=== PATIENT | female | born 1960 | race Two or more races ===

== ENCOUNTER 2019-12-26 17:19 | Emergency (ER) | payer MEDICAID, OTHER ==
--- NOTE | 2019-12-26 17:30 | EDM.PDOC ---
ED HPI GENERAL MEDICAL PROBLEM - General Chief Complaint: Genitourinary Problem Stated Complaint: SICK Time Seen by Provider: 12/26/19 17:20 Source of Information: Reports: Patient History Limitations: Reports: No Limitations - History of Present Illness INITIAL COMMENTS - FREE TEXT/NARRATIVE: HISTORY AND PHYSICAL: History of present illness: Patient is a 59-year-old female who presents to the emergency room with complaints of left lower abdominal/groin pain. She states this afternoon she noticed the pain but felt that it was related to needing to have a bowel movement. She states she did get some relief after voiding and having a bowel movement, describes this as normal. She took some Pepto-Bismol and Tylenol and now feels improved. She states her pain is a 1-2 out of 10. She wanted to come in for evaluation as she states thinks she has a history of ovarian cysts. Patient denies any fever, chills, headache, change in vision, syncope or near syncope. Denies any chest pain, back pain, shortness of breath or cough. Denies any nausea, vomiting, diarrhea, constipation or dysuria. Has not noted any blood in urine or stool. Denies any chance of , concerns of STDs. Denies any vaginal bleeding or discharge. She has been eating and drinking appropriately. Review of systems: As per history of present illness and below otherwise all systems reviewed and negative. Past medical history: As per history of present illness and as reviewed below otherwise noncontributory. Surgical history: As per history of present illness and as reviewed below otherwise noncontributory. Social history: See social history for further information Family history: As per history of present illness and as reviewed below otherwise noncontributory. Physical exam: General: Well-developed and well-nourished 59-year-old female. Alert and oriented. Nontoxic-appearing and in no acute distress. HEENT: Atraumatic, normocephalic, pupils equal and reactive bilaterally, negative for conjunctival pallor or scleral icterus, mucous membranes moist, TMs normal bilaterally, throat clear, neck supple, nontender, trachea midline. No drooling or trismus noted. No meningeal signs. No hot potato voice noted. Lungs: Clear to auscultation, breath sounds equal bilaterally, chest nontender. Heart: S1S2, regular rate and rhythm without overt murmur Abdomen: Soft, nondistended, nontender. Negative for masses. Negative for costovertebral tenderness. Pelvis: Stable nontender. Skin: Intact, warm, dry. No lesions or rashes noted. Extremities: Atraumatic, moves all extremities per self without difficulty or deficits, negative for cords or calf pain. Neurovascular unremarkable. Neuro: Awake, alert, oriented. Cranial nerves II through XII unremarkable. Cerebellum unremarkable. Motor and sensory unremarkable throughout. Exam nonfocal. Notes: Patient has a slight leukocytosis; we discussed risk vs benefits of imaging and she would like a CT at this time. CT shows right-sided pelvic mass either due to ovarian mass or fibroid. This findings was shared with the patient. She states she has had a known fibroid that she has seen someone at [facility] for , I did encourage her to have this reevaluated. We discussed signs and symptoms that would prompt her to return to the ED. States her pain has "pretty much resolved". VSS. Supportive care measures were reviewed and discussed. Voices understanding and is agreeable to plan of care. Denies any further questions or concerns at this time. Diagnostics: CBC, CMP, UA, CT abd/pelvis Therapeutics: None Prescription: None Impression: Abdominal Pain, LLQ Plan: 1. Sabine diet over the next 24-72 hours; advance as tolerated. Increase fluids. 2. Tylenol and/or Ibuprofen as needed for pain. 3. Follow up with OBGYN regarding the right-sided pelvic mass/fibroid. 4. Follow up with your primary care provider as we discussed. Return to the ED as needed as discussed. Definitive disposition and diagnosis as appropriate pending reevaluation and review of above. left groin Pain Score (Numeric/FACES): 2 - Related Data Allergies Allergy/AdvReac Type Severity Reaction Status Date / Time lisinopril Allergy Cough Verified 12/26/19 17:39 Home Meds: Home Meds Furosemide [Lasix] 1 tab PO DAILY 12/26/19 [History] Hydrochlorothiazide 25 mg PO DAILY 12/26/19 [History] Insulin Glarg,Human.Rec.Analog [Lantus] 47 units INJECT ACBREAKFAST 12/26/19 [ History] Insulin Lispro [HumaLOG] 1 dose INJECT ASDIRECTED 12/26/19 [History] Losartan [Cozaar] 100 mg PO DAILY 12/26/19 [History] Metoprolol Succinate [Kapspargo Sprinkle] 1 tab PO DAILY 12/26/19 [History] Oxybutynin [Oxytrol For Women] 1 tab PO BID 12/26/19 [History] atorvaSTATin [Lipitor] 40 mg PO DAILY 12/26/19 [History] metFORMIN [Glucophage XR] 2,000 mg PO BID 12/26/19 [History] ED ROS GENERAL - Review of Systems Review Of Systems: Comprehensive ROS is negative, except as noted in HPI. ED EXAM, RENAL/ - Physical Exam Exam: See Below (See dictation) Course - Vital Signs Last Recorded V/S: Last Vital Signs Temp 96.7 F L 12/26/19 17:42 Pulse 90 12/26/19 17:42 Resp 18 12/26/19 17:42 BP 147/72 H 12/26/19 17:42 Pulse Ox 97 12/26/19 17:42 - Orders/Labs/Meds Labs: Laboratory Tests 12/26/19 12/26/19 12/26/19 Range/Units 17:46 17:47 17:47 WBC 12.48 H (4.0-11.0) K/uL RBC 3.72 L (4.30-5.90) M/uL Hgb 11.1 L (12.0-16.0) g/dL Hct 34.4 L (36.0-46.0) % MCV 92.5 (80.0-98.0) fL MCH 29.8 (27.0-32.0) pg MCHC 32.3 (31.0-37.0) g/dL RDW Std Deviation 58.9 (28.0-62.0) fl RDW Coeff of [place] 17 H (11.0-15.0) % Plt Count 323 (150-400) K/uL MPV 12.10 H (7.40-12.00) fL Neut % (Auto) 68.1 (48.0-80.0) % Lymph % (Auto) 24.0 (16.0-40.0) % [place] % (Auto) 6.0 (0.0-15.0) % Eos % (Auto) 1.7 (0.0-7.0) % Baso % (Auto) 0.2 (0.0-1.5) % Neut # (Auto) 8.5 H (1.4-5.7) K/uL Lymph # (Auto) 3.0 H (0.6-2.4) K/uL [place] # (Auto) 0.8 (0.0-0.8) K/uL Eos # (Auto) 0.2 (0.0-0.7) K/uL Baso # (Auto) 0.0 (0.0-0.1) K/uL Nucleated RBC % 0.0 /100WBC Nucleated RBCs # 0 K/uL Sodium 139 (136-145) mmol/L Potassium 4.6 (3.5-5.1) mmol/L Chloride 101 (98-107) mmol/L Carbon Dioxide 31.8 (21.0-32.0) mmol/L BUN 20 H (7.0-18.0) mg/dL Creatinine 1.1 H (0.6-1.0) mg/dL Est Cr Clr Drug Dosing 50.77 mL/min Estimated GFR (MDRD) 51.2 ml/min Glucose 211 H (74-106) mg/dL Calcium 8.8 (8.5-10.1) mg/dL Total Bilirubin 0.2 (0.2-1.0) mg/dL AST 14 L (15-37) IU/L ALT 21 (14-63) IU/L Alkaline Phosphatase 109 (46-116) U/L Total Protein 7.2 (6.4-8.2) g/dL Albumin 3.1 L (3.4-5.0) g/dL Globulin 4.1 H (2.6-4.0) g/dL Albumin/Globulin Ratio 0.8 L (0.9-1.6) Urine Color YELLOW Urine Appearance CLEAR Urine pH 7.0 (5.0-8.0) Ur Specific [place] 1.020 (1.001-1.035) Urine Protein NEGATIVE (NEGATIVE) mg/dL Urine Glucose (UA) NEGATIVE (NEGATIVE) mg/dL Urine Ketones NEGATIVE (NEGATIVE) mg/dL Urine Occult Blood NEGATIVE (NEGATIVE) Urine Nitrite NEGATIVE (NEGATIVE) Urine Bilirubin NEGATIVE (NEGATIVE) Urine Urobilinogen 0.2 (<2.0) EU/dL Ur Leukocyte Esterase NEGATIVE (NEGATIVE) Departure - Departure Time of Disposition: 19:21 Disposition: Home, Self-Care 01 Clinical Impression: Abdominal pain Qualifiers: Abdominal location: left lower quadrant Qualified Code(s): R10.32 - Left lower quadrant pain - Discharge Information Instructions: Abdominal Pain, Adult, [id number] Referrals: Skylar Nelson NP [Primary Care Provider] - Forms: ED Department Discharge Additional Instructions: The following information is given to patients seen in the emergency department who are being discharged to home. This information is to outline your options for follow-up care. We provide all patients seen in our emergency department with a follow-up referral. The need for follow-up, as well as the timing and circumstances, are variable depending upon the specifics of your emergency department visit. If you don't have a primary care physician on staff, we will provide you with a referral. We always advise you to contact your personal physician following an emergency department visit to inform them of the circumstance of the visit and for follow-up with them and/or the need for any referrals to a consulting specialist. The emergency department will also refer you to a specialist when appropriate. This referral assures that you have the opportunity for follow-up care with a specialist. All of these measure are taken in an effort to provide you with optimal care, which includes your follow-up. Under all circumstances we always encourage you to contact your private physician who remains a resource for coordinating your care. When calling for follow-up care, please make the office aware that this follow-up is from your recent emergency room visit. If for any reason you are refused follow-up, please contact the [facility] Emergency Department at and asked to speak to the emergency department charge nurse. [facility] [address] [place] [id number] [address] 1. Sabine diet over the next 24-72 hours; advance as tolerated. Increase fluids. 2. Tylenol and/or Ibuprofen as needed for pain. 3. Follow up with OBGYN regarding the right-sided pelvic mass/fibroid. 4. Follow up with your primary care provider as we discussed. Return to the ED as needed as discussed. Sepsis Event Note - Focused Exam Vital Signs: Vital Signs Temp Pulse Resp BP Pulse Ox 12/26/19 17:42 96.7 F L 90 18 147/72 H 97 Date Exam was Performed: 12/26/19 Time Exam was Performed: 19:22
[2019-12-26 18:13] LABS: CARBON DIOXIDE,CO2 31.8 mmol/L (21.0-32.0); POTASSIUM,K 4.6 mmol/L (3.5-5.1)
--- NOTE | 2019-12-26 19:16 | CT ---
CT abdomen and pelvis Technique: Multiple axial sections were obtained from above the dome of the diaphragm inferiorly through the pubic symphysis. Intravenous and oral contrast not utilized. Comparison: No prior abdominal imaging. Findings: Visualized lung bases show nothing acute. Noncontrast appearance of the liver shows no focal abnormality. Surgical clips are noted from prior cholecystectomy. No spleen is seen. Adrenal glands show no nodule. Numerous surgical clips are seen within the upper abdomen. Kidneys show no abnormal calcifications. Anteriorly pointing left renal pelvis is seen which is felt to be a normal variant. No ureteral dilatation or ureteral stone is appreciated. Pancreas not visualized. Aorta shows atherosclerotic calcification without aneurysm. No retroperitoneal adenopathy or mesenteric abnormalities are seen. Right-sided pelvic mass is noted. This finding measures approximately 7.5 cm in size. Uncertain if this represents an enlarged ovary or represents a pedunculated uterine fibroid. No additional pelvic abnormality is appreciated. No free fluid or inflammatory change is appreciated. Slight increased stool seen throughout the colon. Bone window settings were reviewed which shows vacuum phenomena within the L4 3 4 and L4-5 discs. Disc space narrowing noted at L5-S1. No acute osseous finding is seen. Small fat-containing umbilical hernia is noted. Impression: 1. Pancreas not well seen. No spleen is appreciated. Surgical clips are seen of the upper abdomen. 2. Right-sided pelvic mass either due to ovarian mass or pedunculated fibroid. Pelvic ultrasound is recommended to further evaluate. 3. Mild increased stool throughout the colon. 4. Other findings believed to be nonacute and incidental as described above. Diagnostic code #9 This report was dictated in MDT
== END 2019-12-26 19:30 | disposition home or self-care (01) ==
LOC: MW.ED 17:19
DX: R10.32 Left lower quadrant pain (principal); D72.829 Elevated white blood cell count, unspecified; Z88.8 Allergy status to other drugs, medicaments and biological substances
CPT/HCPCS: 36415; 74176; 74176-26; 80053; 81003; 85025; 99284-25

== ENCOUNTER 2020-03-24 19:21 | Emergency (ER) | payer MEDICAID ==
[2020-03-24] MEDS ORDERED: Octyl 2-Cyanoacrylate 1 Tube TOP ONE (21:37)
--- NOTE | 2020-03-24 21:40 | EDM.PDOC ---
ED HPI GENERAL MEDICAL PROBLEM - General Chief Complaint: Wound Recheck Stated Complaint: LACERATION LEFT LEG Time Seen by Provider: 03/24/20 21:09 - History of Present Illness INITIAL COMMENTS - FREE TEXT/NARRATIVE: History of present illness: 59-year-old female presenting with left johnston laceration sustained just prior to arrival as the patient was building a metal bed and the metal piece cut her leg. She was concerned because the bleeding continued as she is on Plavix. The bleeding is now stopped on arrival here. Tetanus was less than 3 years ago. No other injury or pain. She did not fall. Review of systems: As per history of present illness and below otherwise all systems reviewed and negative. Past medical history: As per history of present illness and as reviewed below otherwise noncontributory. Surgical history: As per history of present illness and as reviewed below otherwise noncontributory. Social history: No reported history of drug or alcohol abuse. Family history: As per history of present illness and as reviewed below otherwise noncontributory. Physical exam: GEN: no acute distress, well appearing HEENT: Atraumatic, normocephalic, mucous membranes moist, Neck: supple, nontender, trachea midline. Lungs: No respiratory distress. Heart: RRR Abdomen: Soft, nondistended, nontender. Back: nontender Extremities: 2 cm laceration distal left johnston, no active bleeding. Neurovascularly intact. Neuro: Awake, alert, oriented. Neuro Exam nonfocal. Skin: warm, dry, no lesions 2 cm laceration as above, superficial Diagnostics: [] Therapeutics: [] MDM: Plan: Steri-Strips and Dermabond to the wound. Tetanus is up-to-date. Impression: [] Plan: [] Definitive disposition and diagnosis as appropriate pending reevaluation and review of above. left leg Pain Score (Numeric/FACES): 1 - Related Data Allergies Allergy/AdvReac Type Severity Reaction Status Date / Time lisinopril Allergy Cough Verified 03/24/20 21:04 Home Meds: Home Meds Furosemide [Lasix] 1 tab PO DAILY 12/26/19 [History] Insulin Glarg,Human.Rec.Analog [Lantus] 47 units INJECT ACBREAKFAST 12/26/19 [History] Insulin Lispro [HumaLOG] 1 dose INJECT ASDIRECTED 12/26/19 [History] Losartan [Cozaar] 100 mg PO DAILY 12/26/19 [History] Metoprolol Succinate [Kapspargo Sprinkle] 1 tab PO DAILY 12/26/19 [History] Oxybutynin [Oxytrol For Women] 1 tab PO BID 12/26/19 [History] atorvaSTATin [Lipitor] 40 mg PO DAILY 12/26/19 [History] hydroCHLOROthiazide [Hydrochlorothiazide] 25 mg PO DAILY 12/26/19 [History] metFORMIN [Glucophage XR] 2,000 mg PO BID 12/26/19 [History] Clopidogrel [Plavix] 75 mg PO DAILY 03/24/20 [History] Past Medical History HEENT History: Reports: Cataract Cardiovascular History: Reports: High Cholesterol, Hypertension Respiratory History: Reports: Bronchitis, Recurrent, COPD Gastrointestinal History: Reports: Pancreatitis Genitourinary History: Reports: None HOME HEALTH SPEECH THERAPIST History: Reports: None Musculoskeletal History: Reports: Arthritis Neurological History: Reports: None Psychiatric History: Reports: Anxiety, Depression Endocrine/Metabolic History: Reports: Diabetes Mellitus, Type 3c Hematologic History: Reports: None Immunologic History: Reports: None Oncologic (Cancer) History: Reports: None Dermatologic History: Reports: None - Infectious Disease History Infectious Disease History: Reports: Chicken Pox, Measles, Mumps - Past Surgical History Head Surgeries/Procedures: Reports: None HEENT Surgical History: Reports: None Cardiovascular Surgical History: Reports: Coronary Artery Stent Respiratory Surgical History: Reports: None GI Surgical History: Reports: Abdominal paracentesis Female Surgical History: Reports: None Endocrine Surgical History: Reports: None Neurological Surgical History: Reports: None Musculoskeletal Surgical History: Reports: Knee Replacement Oncologic Surgical History: Reports: None Dermatological Surgical History: Reports: None Social & Family History - Family History Family Medical History: Noncontributory - Tobacco Use Smoking Status *Q: Never Smoker - Caffeine Use Caffeine Use: Reports: None ED ROS GENERAL - Review of Systems Review Of Systems: See Below (See HPI) ED EXAM, GENERAL - Physical Exam Exam: See Below (See HPI) Course - Vital Signs Text/Narrative:: Laceration from a piece of a bed, tetanus up-to-date, Steri-Strips and Dermabond placed by nursing. Patient left prior to final discharge discussion and disposition by myself. Last Recorded V/S: Last Vital Signs Temp 96.9 F 03/24/20 21:02 Pulse 84 03/24/20 21:02 Resp 16 03/24/20 21:02 BP 140/69 03/24/20 21:02 Pulse Ox 97 03/24/20 21:02 - Orders/Labs/Meds Meds: Medications Discontinued Medications Generic Name Dose Route Start Last Admin Trade Name Dalia PRN Reason Stop Dose Admin Octyl Cyanoacrylate 1 applic 03/24/20 21:37 03/24/20 21:51 Dermabond Advance TOP 03/24/20 21:38 1 applic ONETIME ONE Administration - Re-Assessments/Exams Free Text/Narrative Re-Assessment/Exam: 03/24/20 22:37 I went to to check back in on the patient to give her final discharge instructions after nursing had placed Steri-Strips and Dermabond. However the patient is not present in the room. Apparently the patient left without final discharge instructions after repair of her wound. Departure - Departure Time of Disposition: 22:38 Disposition: Eloped 07 Clinical Impression: Skin laceration - Discharge Information Instructions: Sutures, Dresher, or Adhesive Wound Closure, [id number] Referrals: Skylar Nelson NETWORK TECHNICAL ANALYST [Primary Care Provider] - Forms: ED Department Discharge Additional Instructions: The following information is given to patients seen in the emergency department who are being discharged to home. This information is to outline your options for follow-up care. We provide all patients seen in our emergency department with a follow-up referral. The need for follow-up, as well as the timing and circumstances, are variable de pending upon the specifics of your emergency department visit. If you don't have a primary care physician on staff, we will provide you with a referral. We always advise you to contact your personal physician following an emergency department visit to inform them of the circumstance of the visit and for follow-up with them and/or the need for any referrals to a consulting specialist. The emergency department will also refer you to a specialist when appropriate. This referral assures that you have the opportunity for follow-up care with a specialist. All of these measure are taken in an effort to provide you with optimal care, which includes your follow-up. Under all circumstances we always encourage you to contact your private physician who remains a resource for coordinating your care. When calling for follow-up care, please make the office aware that this follow-up is from your recent emergency room visit. If for any reason you are refused follow-up, please contact the [facility] Emergency Department at and asked to speak to the emergency department charge nurse. Sepsis Event Note (ED) - Evaluation Sepsis Screening Result: No Definite Risk - Focused Exam Vital Signs: Vital Signs Temp Pulse Resp BP Pulse Ox 03/24/20 21:02 96.9 F 84 16 140/69 97
== END 2020-03-24 22:31 | disposition left against medical advice (07) ==
LOC: MW.ED 19:21
DX: S81.812A Laceration without foreign body, left lower leg, initial encounter (principal); E78.00 Pure hypercholesterolemia, unspecified; M19.90 Unspecified osteoarthritis, unspecified site; E11.9 Type 2 diabetes mellitus without complications; F41.9 Anxiety disorder, unspecified; F32.9 Major depressive disorder, single episode, unspecified; Z79.899 Other long term (current) drug therapy; Z79.02 Long term (current) use of antithrombotics/antiplatelets; Z79.4 Long term (current) use of insulin; W26.8XXA Contact with other sharp object(s), not elsewhere classified, initial encounter
CPT/HCPCS: 12001; 99282; A9270

== ENCOUNTER 2021-05-27 12:17 | Emergency (ER) | payer OTHER, MEDICAID ==
--- NOTE | 2021-05-27 15:25 | EDM.PDOC ---
ED HPI GENERAL MEDICAL PROBLEM - General Chief Complaint: Lower Extremity Injury/Pain Stated Complaint: FELL ON LEG ACOUPLE DAYS AGO Time Seen by Provider: 05/27/21 15:06 Source of Information: Reports: Patient History Limitations: Reports: No Limitations - History of Present Illness INITIAL COMMENTS - FREE TEXT/NARRATIVE: HISTORY AND PHYSICAL: History of present illness: The patient is a 60-year-old female that fell on 05/22/2021 and 05/23/2021 to her knees and is now concerned due to swelling. The patient states that she fell to her knees on May 22 and . She initially did not have any bruising but over the course of the days the noticed some bruising going down her leg. She assumed that was due to her Plavix that she is on. The patient complaints of generalized swelling from her left knee down to her left ankle. He is able to walk on her leg without difficulty. She has been otherwise healthy. Patient denies any fever, chills, headache, change in vision, syncope or near syncope. Denies any chest pain, back pain, shortness of breath or cough. Denies any abdominal pain, nausea, vomiting, diarrhea, constipation or dysuria. Has not noted any blood in urine or stool. Patient has been eating and drinking appropriately. Review of systems: As per history of present illness and below otherwise all systems reviewed and negative. Past medical history: As per history of present illness and as reviewed below otherwise noncontributory. Surgical history: As per history of present illness and as reviewed below otherwise noncontributory. Social history: See social history for further information Family history: As per history of present illness and as reviewed below otherwise noncontributory. Physical exam: General: Well developed and well nourished. Alert and orientated x 3. Nontoxic in appearance and in no acute distress. Vital signs are stable and have been reviewed by me. Nursing notes were reviewed. HEENT: Atraumatic, normocephalic, pupils equal and reactive bilaterally, negative for conjunctival pallor or scleral icterus, mucous membranes moist, TMs normal bilaterally, throat clear, neck supple, nontender, trachea midline. No drooling or trismus noted. No meningeal signs. No hot potato voice noted. Lungs: Clear to auscultation bilaterally. No wheezes, rales, or rhonchi. Chest nontender. Normal work of breathing, no accessory muscles used. Heart: S1S2, regular rate and rhythm without overt murmur, gallops, or rubs. No JVD. Abdomen: Soft, nondistended, nontender. Normoactive bowel sounds. Negative for masses or costovertebral tenderness. Skin: Intact, warm, dry. Bruising noticed at the left knee extending down mid anterior lower leg. Hematologic: No petechiae or purpra. Mucosa appropriate color and normal nail bed color and refill. Extremities: Moves all extremities per self without difficulty or deficits, negative for cords or calf pain. neurovascular unremarkable. Swelling to left knee to left ankle. Neuro: Awake, alert, oriented. Cranial nerves II through XII unremarkable. Cerebellum unremarkable. Motor and sensory unremarkable throughout. Psychiatric: Mood and affect are appropriate. Normal thought process. Answering questions appropriately. Notes: *This patient was seen and evaluated during the 2019 SARS-CoV-2 novel coronavirus pandemic period. Community viral transmission is ongoing at time of this encounter and the emergency department is operating under pandemic response procedures. As stated above the patient is a 60-year-old that fell on May 22 and who presents with swelling and bruising to the left lower leg. The patient is currently on Plavix 75 mg daily and has been on for several years. Due to her anticoagulation and ultrasound is not needed at this time. I will obtain a x- ray of her knee. I offered pain relief and the patient stated she did not need any. The patient is agreeable with this plan. left knee x Impression: Degenerative change. I informed the patient of her x-ray results and of the need for her to follow-up with her primary care for consultation regarding ultrasound of her left lower extremity on an outpatient basis as she is already anticoagulated. The patient verbalized understanding. I have talked with the patient about today's findings, in addition to providing specific details for plan of care. Reassessment at the time of disposition demonstrates that the patient is in no acute distress. The patient is stable for discharge, counseling was provided and we discussed in great detail signs and symptoms that would prompt them to return to the Emergency Department. Medication, follow up and supportive care measures were reviewed and discussed. Voices understanding and is agreeable to plan of care. Denies any further questions or concerns at this time. Diagnostics: Right knee x-ray Impression: Knee contusion Plan: 1. You were evaluated today on an emergent basis. Your left knee and lower leg swelling was evaluated with a x-ray. You were found to have degenerative changes to your knee which indicates arthritis. As you are on Plavix do not order an ultrasound from the emergency department as a treatment for a blood cl ot is blood thinners. I do recommend that you see your primary care provider for consultation for a outpatient ultrasound of your left lower extremity. If you go home and you have any shortness of breath dizziness or anything like that please return to the emergency department. 2. You can alternate Tylenol and ibuprofen as needed for pain and fever management. 3. We encourage you to follow up with your primary care provider and/or recommended specialist in the next few days for re-evaluation and further care/management. 4. If your symptoms should worsen, new symptoms develop or any of the signs and symptoms we discussed should arise please return to the emergency room or call 911 (if needed). Definitive disposition and diagnosis as appropriate pending reevaluation and review of above. Left leg Pain Score (Numeric/FACES): 8 - Related Data Allergies Allergy/AdvReac Type Severity Reaction Status Date / Time lisinopril Allergy Cough Verified 05/27/21 15:07 Home Meds: Home Meds Furosemide [Lasix] 1 tab PO DAILY 12/26/19 [History] Insulin Glarg,Human.Rec.Analog [Lantus] 47 units INJECT ACBREAKFAST 12/26/19 [History] Insulin Lispro [HumaLOG] 1 dose INJECT ASDIRECTED 12/26/19 [History] Losartan [Cozaar] 100 mg PO DAILY 12/26/19 [History] Metoprolol Succinate [Kapspargo Sprinkle] 1 tab PO DAILY 12/26/19 [History] Oxybutynin [Oxytrol For Women] 1 tab PO BID 12/26/19 [History] hydroCHLOROthiazide [Hydrochlorothiazide] 25 mg PO DAILY 12/26/19 [History] metFORMIN [Glucophage XR] 2,000 mg PO BID 12/26/19 [History] Clopidogrel [Plavix] 75 mg PO DAILY 03/24/20 [History] Past Medical History HEENT History: Reports: Cataract Cardiovascular History: Reports: High Cholesterol, Hypertension Respiratory History: Reports: Bronchitis, Recurrent, COPD Gastrointestinal History: Reports: Pancreatitis Genitourinary History: Reports: None [employer] History: Reports: None Musculoskeletal History: Reports: Arthritis Neurological History: Reports: None Psychiatric History: Reports: Anxiety, Depression Endocrine/Metabolic History: Reports: Diabetes Mellitus, Type 3c Hematologic History: Reports: None Immunologic History: Reports: None Oncologic (Cancer) History: Reports: None Dermatologic History: Reports: None - Infectious Disease History Infectious Disease History: Reports: Chicken Pox, Measles, Mumps - Past Surgical History Head Surgeries/Procedures: Reports: None HEENT Surgical History: Reports: None Cardiovascular Surgical History: Reports: Coronary Artery Stent Respiratory Surgical History: Reports: None GI Surgical History: Reports: Abdominal paracentesis Female Surgical History: Reports: None Endocrine Surgical History: Reports: None Neurological Surgical History: Reports: None Musculoskeletal Surgical History: Reports: Knee Replacement Oncologic Surgical History: Reports: None Dermatological Surgical History: Reports: None Social & Family History - Family History Family Medical History: No Pertinent Family History - Tobacco Use Tobacco Use Status *Q: Unknown Ever Used Tobacco - Caffeine Use Caffeine Use: Reports: None - Recreational Drug Use Recreational Drug Use: No Review of Systems - Review of Systems Review Of Systems: Comprehensive ROS is negative, except as noted in HPI. ED EXAM, GENERAL - Physical Exam Exam: See Below (See dictation) Course - Vital Signs Last Recorded V/S: Last Vital Signs Temp 96.8 F L 05/27/21 16:56 Pulse 75 05/27/21 16:56 Resp 15 05/27/21 16:56 BP 170/87 H 05/27/21 16:56 Pulse Ox 97 05/27/21 16:56 Departure - Departure Time of Disposition: 16:46 Disposition: Home, Self-Care 01 Condition: Good Clinical Impression: Contusion, knee Qualifiers: Encounter type: initial encounter Laterality: left Qualified Code(s): S80.02XA - Contusion of left knee, initial encounter - Discharge Information *PRESCRIPTION DRUG MONITORING PROGRAM REVIEWED*: Not Applicable *COPY OF PRESCRIPTION DRUG MONITORING REPORT IN PATIENT KINDRA: Not Applicable Instructions: Contusion, [id number] Referrals: Darrel Alan MD [Primary Care Provider] - Forms: ED Department Discharge Additional Instructions: The following information is given to patients seen in the emergency department who are being discharged to home. This information is to outline your options for follow-up care. We provide all patients seen in our emergency department with a follow-up referral. The need for follow-up, as well as the timing and circumstances, are variable depending upon the specifics of your emergency department visit. If you don't have a primary care physician on staff, we will provide you with a referral. We always advise you to contact your personal physician following an emergency department visit to inform them of the circumstance of the visit and for follow-up with them and/or the need for any referrals to a consulting specialist. The emergency department will also refer you to a specialist when appropriate. This referral assures that you have the opportunity for follow-up care with a specialist. All of these measure are taken in an effort to provide you with optimal care, which includes your follow-up. Under all circumstances we always encourage you to contact your private physician who remains a resource for coordinating your care. When calling for follow-up care, please make the office aware that this follow-up is from your recent emergency room visit. If for any reason you are refused follow-up, please contact the [facility] Emergency Department at and asked to speak to the emergency department charge nurse. [facility] - [facility] [address] [place] [address] [place] [address] Plan: 1. You were evaluated today on an emergent basis. Your left knee and lower leg swelling was evaluated with a x-ray. You were found to have degenerative changes to your knee which indicates arthritis. As you are on Plavix do not order an ultrasound from the emergency department as a treatment for a blood clot is blood thinners. I do recommend that you see your primary care provider for consultation for a outpatient ultrasound of your left lower extremity. If you go home and you have any shortness of breath dizziness or anything like that please return to the emergency department. 2. You can alternate Tylenol and ibuprofen as needed for pain and fever management. 3. We encourage you to follow up with your primary care provider and/or recommended specialist in the next few days for re-evaluation and further care/management. 4. If your symptoms should worsen, new symptoms develop or any of the signs and symptoms we discussed should arise please return to the emergency room or call 911 (if needed). Sepsis Event Note (ED) - Evaluation Sepsis Screening Result: No Definite Risk
--- NOTE | 2021-05-27 16:38 | CR ---
Indication: Left knee injury and pain. Technique: Three views of the left knee. Comparison: None Findings: Moderate narrowing of the medial compartment is identified. Spurring of the tibial spines is identified. Narrowing of the patellofemoral articulation is identified medially. No fracture or subluxation is identified. Impression: Degenerative change. Dictated by Alysha Padilla MD @ 05/27/2021 4:36:[address] Alysha Padilla @ May 27 2021 4:36PM
== END 2021-05-27 16:58 | disposition home or self-care (01) ==
LOC: MW.ED 12:17
DX: S80.02XA Contusion of left knee, initial encounter (principal); E78.00 Pure hypercholesterolemia, unspecified; I10 Essential (primary) hypertension; J44.9 Chronic obstructive pulmonary disease, unspecified; E13.9 Other specified diabetes mellitus without complications; Z95.5 Presence of coronary angioplasty implant and graft; Z79.02 Long term (current) use of antithrombotics/antiplatelets; Z88.8 Allergy status to other drugs, medicaments and biological substances; Z79.899 Other long term (current) drug therapy; Z79.84 Long term (current) use of oral hypoglycemic drugs; W18.39XA Other fall on same level, initial encounter
CPT/HCPCS: 73562-26-LT; 73562-LT; 99283; 99283-25

== ENCOUNTER 2022-09-23 11:11 | Observation (INO) | payer MEDICAID ==
[2022-09-23 12:51] LABS: CORONAVIRUS COVID-19 NAA NEGATIVE (NEGATIVE); INFLUENZA A NAA POSITIVE (NEGATIVE); INFLUENZA B NAA NEGATIVE (NEGATIVE); RESPIRATORY SYNCYTIAL VIR NAA NEGATIVE (NEGATIVE)
[2022-09-23] MEDS ORDERED: Sodium Chloride 0.9% 1,000 ML IV ONE (13:39)
[2022-09-23] MEDS ORDERED: methylPREDNISolone Sodium Succinate 125 MG/2 ML SDV IVPUSH ONE (14:38)
[2022-09-23 14:51] LABS: CARBON DIOXIDE,CO2 32.3 mmol/L (21.0-32.0); POTASSIUM,K 3.4 mmol/L (3.5-5.1)
[2022-09-23] MEDS ORDERED: Ondansetron 4 MG/2 ML SDV IVPUSH PRN (15:54)
[2022-09-23] MEDS ORDERED: Albuterol/Ipratropium 3.0-0.5 MG/3 ML Neb Soln NEB PRN (15:54)
[2022-09-23] MEDS ORDERED: Polyethylene Glycol 3350 Powder 17 GM Packet PO PRN (15:54)
[2022-09-23] MEDS ORDERED: Acetaminophen 325 MG Tab PO PRN (15:54)
[2022-09-23] MEDS ORDERED: Heparin Sodium 5,000 Units/ML Vial SUBCUT SCH (16:00)
[2022-09-23] MEDS ORDERED: 50% Dextrose in Water 50 ML Syringe IVPUSH PRN (16:02)
[2022-09-23] MEDS ORDERED: Glucagon,Human Recombinant 1 MG Vial IM PRN (16:02)
[2022-09-23] MEDS: Pantoprazole 40 MG in Sodium Chloride 0.9% 10 ML IVPUSH SCH (16:58)
[2022-09-23] MEDS: Metoprolol Succinate 25 MG Tab.ER PO SCH (16:59)
[2022-09-23] MEDS: Oseltamivir 75 MG Cap PO SCH ×2 (17:00→21:00)
[2022-09-23] MEDS: Insulin Aspart 100 Units/ML 3 ML Pen SUBCUT SCH (17:30)
[2022-09-23] MEDS ORDERED: Benzonatate 100 MG Cap PO PRN (18:02)
[2022-09-23] MEDS: Potassium Chloride 20 MEQ Tab.ER PO SCH (18:27)
[2022-09-23] MEDS: Oxybutynin 5 MG Tab PO SCH (20:59)
[2022-09-23] MEDS: Hydrochlorothiazide 25 MG Tab PO SCH (20:59)
[2022-09-23] MEDS ORDERED: atorvaSTATin 20 MG Tab PO SCH (21:00)
[2022-09-24] MEDS: Pantoprazole 40 MG in Sodium Chloride 0.9% 10 ML IVPUSH SCH (06:31)
[2022-09-24] MEDS: Insulin Aspart 100 Units/ML 3 ML Pen SUBCUT SCH ×2 (06:46→11:58)
[2022-09-24] MEDS ORDERED: Insulin Glargine,Hum.Rec.Anlog 100 UNIT/ML 3 ML Pen SUBCUT SCH (07:30)
[2022-09-24] MEDS: Potassium Chloride 20 MEQ Tab.ER PO SCH (08:59)
[2022-09-24] MEDS ORDERED: Fluticasone NASAL Spray 16 GM Bottle NASBOTH SCH (09:00)
[2022-09-24] MEDS ORDERED: Losartan 50 MG Tab PO SCH (09:00)
[2022-09-24] MEDS: Metoprolol Succinate 25 MG Tab.ER PO SCH (09:00)
[2022-09-24] MEDS ORDERED: methylPREDNISolone Sodium Succinate 40 MG/1 ML SDV IVPUSH SCH (09:00)
[2022-09-24] MEDS ORDERED: Clopidogrel 75 MG Tab PO SCH (09:00)
[2022-09-24] MEDS ORDERED: Furosemide 40 MG Tab PO SCH (09:00)
[2022-09-24] MEDS: Oxybutynin 5 MG Tab PO SCH (09:00)
[2022-09-24] MEDS: Hydrochlorothiazide 25 MG Tab PO SCH (09:01)
[2022-09-24] MEDS: Oseltamivir 75 MG Cap PO SCH (09:03)
[2022-09-24] MEDS ORDERED: Pantoprazole 40 MG Tab.CR PO SCH (17:00)
== END 2022-09-24 12:55 | disposition home or self-care (01) ==
LOC: MW.ED 11:11 → MW.MS 14:39
PROVIDERS: ADMIT Internal Medicine; ATTEND Internal Medicine
DX: E11.9 Type 2 diabetes mellitus without complications (principal); I25.10 Atherosclerotic heart disease of native coronary artery without angina pectoris; I10 Essential (primary) hypertension; F41.9 Anxiety disorder, unspecified; F32.A Depression, unspecified; E78.00 Pure hypercholesterolemia, unspecified; R09.02 Hypoxemia; J10.1 Influenza due to other identified influenza virus with other respiratory manifestations; Z90.410 Acquired total absence of pancreas; Z79.899 Other long term (current) drug therapy; Z79.4 Long term (current) use of insulin; Z79.84 Long term (current) use of oral hypoglycemic drugs; Z20.822 Contact with and (suspected) exposure to COVID-19; Z88.8 Allergy status to other drugs, medicaments and biological substances; Z98.890 Other specified postprocedural states; Z96.659 Presence of unspecified artificial knee joint
CPT/HCPCS: 0241U; 36415; 71045; 80053; 81001; 82947; 83735; 85025; 93005; 96361; 96374; 96375; 99285; A9270; C9113; G0378; J2930; J3490; J7030; J1815-GY

== ENCOUNTER 2024-05-16 06:52 | Emergency (ER) | payer OTHER ==
[2024-05-16] MEDS: Ketorolac 30 MG/ML SDV IM ONE (07:50)
[2024-05-16] MEDS: Benzocaine 20% Topical Spray UD MUCMEM ONE (07:50)
[2024-05-16] MEDS: Lidocaine 2% Viscous Solution 15 ML UD PO ONE (07:50)
[2024-05-16] MEDS: Acetaminophen 500 MG Tab PO ONE (07:51)
== END 2024-05-16 08:12 | disposition home or self-care (01) ==
LOC: MW.ED 06:52
DX: K04.7 Periapical abscess without sinus (principal); K02.9 Dental caries, unspecified; E78.00 Pure hypercholesterolemia, unspecified; I10 Essential (primary) hypertension; E11.9 Type 2 diabetes mellitus without complications; Z79.899 Other long term (current) drug therapy; Z79.4 Long term (current) use of insulin; Z79.82 Long term (current) use of aspirin; Z88.8 Allergy status to other drugs, medicaments and biological substances
CPT/HCPCS: 96372; 99282; A9270; J1885

== ENCOUNTER 2025-08-11 11:22 | Emergency (ER) | payer OTHER ==
[2025-08-11 12:37] LABS: BASOPHILS ABSOLUTE AUTO 0.04 K/uL (0.00-0.20); BASOPHILS PERCENT AUTO 0.5 % (0.0-1.0); EOSINOPHILS ABSOLUTE AUTO 0.12 K/uL (0.00-0.45); EOSINOPHILS PERCENT AUTO 1.4 % (0.0-6.0); IMMATURE GRAN ABSOLUTE AUTO 0.02 K/uL (0.00-0.05); IMMATURE GRAN PERCENT AUTO 0.2 % (0.0-0.4); LYMPHOCYTES ABSOLUTE AUTO 2.70 K/uL (1.00-4.80); LYMPHOCYTES PERCENT AUTO 31.3 % (24.0-44.0); MEAN PLATELET VOLUME 12.0 fL (9.4-12.3); MONOCYTES ABSOLUTE AUTO 0.71 K/uL (0.00-0.80); MONOCYTES PERCENT AUTO 8.2 % (0.0-8.0); NEUTROPHILS ABSOLUTE AUTO 5.04 K/uL (1.80-7.70); NEUTROPHILS PERCENT AUTO 58.4 % (41.0-71.0); NRBC ABSOLUTE 0.00 K/uL (0.00-0.02); NRBC PERCENT 0.0 /100WBC (0.0-0.2); PLATELET COUNT,PLT 326 K/uL (150-400); RED BLOOD CELL COUNT 4.02 M/uL (4.10-5.30); WHITE BLOOD CELL COUNT,WBC 8.63 K/uL (3.9-11.3)
[2025-08-11 13:10] LABS: A/G RATIO 0.7 (0.9-1.6); ALANINE AMINOTRANSFERASE,ALT 30.0 IU/L (14-63); ASPARTATE AMNIOTRANSFERASE,AST 19.0 IU/L (15-37); BILIRUBIN TOTAL 0.3 mg/dL (0.2-1.0); BLOOD UREA NITROGEN,BUN 24.0 mg/dL (7.0-18.0); CARBON DIOXIDE,CO2 34.8 mmol/L (21.0-32.0); CHLORIDE,CL 100.0 mmol/L (98-107); CREATININE 1.2 mg/dL (0.6-1.0); EST CRCL DRUG DOSING (CG) 43.18 mL/min; GLUCOSE RANDOM 283.0 mg/dL (74-106); POTASSIUM,K 4.3 mmol/L (3.5-5.1); PROTEIN TOTAL,TP 7.3 g/dL (6.4-8.2); SODIUM,NA 138.0 mmol/L (136-145)
[2025-08-11 13:13] LABS: ESTIMATED GFR 51.0 mL/min (>60)
== END 2025-08-11 13:16 | disposition home or self-care (01) ==
LOC: MW.ED 11:22
DX: J20.9 Acute bronchitis, unspecified (principal); I25.10 Atherosclerotic heart disease of native coronary artery without angina pectoris; E11.9 Type 2 diabetes mellitus without complications; I10 Essential (primary) hypertension; E78.00 Pure hypercholesterolemia, unspecified; Z88.8 Allergy status to other drugs, medicaments and biological substances; Z79.82 Long term (current) use of aspirin; Z79.84 Long term (current) use of oral hypoglycemic drugs; Z79.899 Other long term (current) drug therapy
CPT/HCPCS: 36415; 71046; 71046-26; 80053; 85025; 87428-QW; 99283